=== PATIENT | male | born 1985 | race African-American/Black ===

== ENCOUNTER 2018-10-10 18:15 | Inpatient (IN) ==
[2018-10-10 18:52] LABS: BASO# 0.01 X1000 (0.0-0.2); BASO% 0.2 % (0.0-0.8); EOS# 0.05 X1000 (0.0-0.7); EOS% 0.9 % (0.0-10.0); HEMATOCRIT 31.5 % (42.0-52.0); HEMOGLOBIN 10.6 g/dL (14.0-18.0); LYMPH# 1.16 X1000 (1.2-3.4); LYMPH% 21.9 % (20.5-51.1); MCH 26.2 PG (27-31); MCHC 33.7 g/dL (33-37); MONO# 0.56 X1000 (0.11-0.59); MONO% 10.6 % (1.7-9.3); MPV 9.2 FL (7.4-10.4); NEUT# 3.52 X1000 (1.4-6.5); NEUT% 66.4 % (42.2-75.2); PLT 274 X1000 (130-400); RBC 4.04 XMIL (4.7-6.1); RDW 12.8 % (11.5-14.5)
[2018-10-10] MEDS ORDERED: ANTIVERT PO ONE (19:15)
[2018-10-10] MEDS ORDERED: NS 1,000 ML IV ONE ×2 (19:15→20:40)
[2018-10-10 19:17] LABS: AGAP 15; ALB/GLOB RATIO 1.1; ALBUMIN 3.9 g/dL (3.5-5.0); ALKALINE PHOSPHATASE 48 U/L (32-122); BUN 20 mg/dL (8-22); CALCIUM 8.8 mg/dL (8.8-10.2); CHLORIDE 107 mmol/L (98-107); COSMO 286; CREATININE 1.4 mg/dL (0.7-1.2); ESTIMATED GFR > 60; GLUCOSE 102 mg/dL (70-104); GOT 26 U/L (10-34); GPT 13 U/L (10-44); POTASSIUM 3.9 mmol/L (3.5-5.1); SODIUM 142 mmol/L (136-145); TCO2 20 mmol/L (25-35); TOTAL BILIRUBIN 0.87 mg/dL (0.20-1.00); TOTAL PROTEIN 7.5 g/dL (6.3-8.3)
--- NOTE | 2018-10-10 21:03 | Diag Imaging Result Doc PS360 ---
EXAM: CT HEAD W/O CONTRAST INDICATION: dizzy TECHNIQUE: This exam was performed using automated exposure control, adjustment of mA or kV according to patient size, and/or use of iterative reconstruction technique. COMPARISON: 06/13/2014 FINDINGS: There is no definite acute infarct given the limited sensitivity of CT versus MRI. There is no discrete intracranial mass, mass effect, or intracranial hemorrhage. The surrounding soft tissues and bony structures are essentially unremarkable. IMPRESSION: No evidence of acute intracranial pathology. Electronically signed by El Acevedo 10/10/2018 9:01 PM
[2018-10-10] MEDS ORDERED: TYLENOL PO PRN (21:05)
[2018-10-10] MEDS ORDERED: ZOFRAN IV PRN (21:05)
[2018-10-10] MEDS ORDERED: NORVASC PO ONE (21:52)
[2018-10-10] MEDS: LOVENOX SUBQ SCH (22:36)
[2018-10-10] MEDS: NS 1,000 ML IV SCH (22:36)
[2018-10-11] MEDS: NS 1,000 ML IV SCH ×2 (05:33→15:28)
[2018-10-11] MEDS: HUMALOG SUBQ SCH ×4 (06:23→21:00)
--- NOTE | 2018-10-11 06:43 | EKG Report ---
Test Performed on : 10/10/2018 6:26:35 PM Test Reason : DIZZINESS Blood Pressure : / mmHG Vent. Rate : 094 BPM Atrial Rate : 094 BPM P-R Int : 164 ms QRS Dur : 078 ms QT Int : 356 ms P-R-T Axes : 065 014 078 degrees QTc Int : 445 ms Normal sinus rhythm. Normal ECG When compared with ECG of 08-JUN-2017 18:36, Nonspecific T wave abnormality no longer evident in Inferior leads Unconfirmed Result
[2018-10-11 07:40] LABS: MPV 9.5 FL (7.4-10.4)
[2018-10-11 07:44] LABS: AGAP 8; BUN 16 mg/dL (8-22); CALCIUM 7.7 mg/dL (8.8-10.2); CHLORIDE 111 mmol/L (98-107); CK TOTAL 1146 U/L (24-204); COSMO 282; ESTIMATED GFR > 60; GLUCOSE 126 mg/dL (70-104); POTASSIUM 3.8 mmol/L (3.5-5.1); SODIUM 140 mmol/L (136-145); TCO2 21 mmol/L (25-35)
[2018-10-11 07:54] LABS: HEMOGLOBIN 9.6 g/dL (14.0-18.0); MCH 26.2 PG (27-31); MCHC 33.1 g/dL (33-37); PLT 232 X1000 (130-400); RBC 3.67 XMIL (4.7-6.1); RDW 12.9 % (11.5-14.5); WBC 4.55 X1000 (4.8-10.8)
[2018-10-11 07:55] LABS: BASO# 0.02 X1000 (0.0-0.2); BASO% 0.4 % (0.0-0.8); EOS# 0.17 X1000 (0.0-0.7); EOS% 3.7 % (0.0-10.0); MONO# 0.53 X1000 (0.11-0.59); MONO% 11.6 % (1.7-9.3); NEUT# 2.33 X1000 (1.4-6.5); NEUT% 51.3 % (42.2-75.2)
[2018-10-11 08:44] LABS: IRON SATURATION 25 %; TIBC 197 ug/dL; TOTAL IRON 50 ug/dL (53-167); UNBOUND IRON 147 ug/dL (112-346)
[2018-10-11 10:02] LABS: FERRITIN 165 ng/mL (30-400)
--- NOTE | 2018-10-11 15:11 | PROGRESS NOTE ---
DATE: 10/11/2018 SUBJECTIVE: This morning, Mr. Willis referred to be feeling a little better. He said he has not gotten up yet, but he does not feel as dizzy as before. OBJECTIVE: Current Vital Signs: Blood pressure is 131/83, pulse of 85, respirations are 18, temperature is 98.0 degrees, the patient is saturating 99% on room air. General Examination: Mr. Willis is a 33-year-old, gentleman. He is in bed. No distress. HEENT: Mucosa is pink and moist. Anicteric. Acyanotic. Neck: Supple. Chest: Good air entry bilaterally. No crepitations. No rhonchi. Cardiovascular: Regular rate and rhythm. No murmurs, no rubs, no gallops. GI: Abdomen is soft, nontender. Bowel sounds present. : Unremarkable. Extremities: No pedal edema. Distal pulses are present. CHEMISTRY ASSOCIATE: The patient is awake, alert, oriented. There is some mild peripheral sensation alteration in the lower extremities in a glove- stocking manner. Laboratory Data: WBC is 4.55, hemoglobin is 9.6, platelet count of 232,000. Chemistry is also reviewed and unremarkable. A CT scan of the head showed no evidence of intracranial pathology. EKG on admission did show a sinus rhythm. No acute ST-segment or T-wave abnormalities. ASSESSMENT: 1. Syncope on presentation with positive orthostatic vitals, consistent with orthostatic hypotension. The patient has been adequately fluid resuscitated. 2. Clinical volume depletion. Patient is on fluids. 3. Acute kidney injury secondary to #2, improved. 4. Hypertension. We will restart the patient back on his home medications. 5. Microcytic anemia with normal iron studies, most likely due to anemia of chronic disease. 6. Mild rhabdomyolysis. The patient is on intravenous fluids. 7. Diabetes mellitus. The patient is on an insulin regimen. 8. Peripheral diabetic neuropathy noted. PLAN: In general, I think Mr. Willis seems to be doing a little better. He does not feel anymore dizzy. We are going to continue with the IV fluids. We will repeat his orthostatic vitals for in the morning. Continue with the management of his other comorbidities. Hopefully, discharge him tomorrow. cc: Martin Moore MD
[2018-10-11] MEDS: LOVENOX SUBQ SCH (21:01)
--- NOTE | 2018-10-12 03:25 | HISTORY AND PHYSICAL ---
CHIEF COMPLAINT: Dizziness. HISTORY OF PRESENT ILLNESS: Mr. Willis is a 33-year-old male who comes into the emergency room with a complaint of weakness, dizziness, lightheaded, close to syncope. He was working outside prior to arrival. He has not been taking his hypertension or diabetes medications because he has not found a doctor since getting insurance. He did check his blood sugar and it was 145 prior to arrival. On arrival, laboratory data was obtained that showed he was in acute renal failure with mild rhabdomyolysis. He will be admitted for further evaluation and treatment. PAST MEDICAL HISTORY: Hypertension, diabetes mellitus type 2, hyperlipidemia, schizophrenia. PREVIOUS SURGICAL HISTORY: Denies. SOCIAL HISTORY: Daily smoker. Smokes around 3 cigarettes per day. I believe he has a history of methamphetamine use but denies taking any illicit drugs or using alcohol. FAMILY HISTORY: Positive for diabetes mellitus in several first-degree relatives. ALLERGIES: No known drug allergies. HOME MEDICATION: No home medication. REVIEW OF SYSTEMS: Fourteen-point review of systems conducted with the patient. Pertinent positives listed above in the HPI. All other systems reviewed and found to be negative. PHYSICAL EXAMINATION: VITAL SIGNS: Temperature 98.2, pulse 99, respirations 18, blood pressure 160/92. Orthostatics were obtained and he did tilt. GENERAL: A 33-year-old male answers all questions appropriately, alert and oriented times 3, in no acute distress. HEENT: Head is atraumatic, normocephalic. Pupils equal, round, reactive to light. Extraocular eye movement is intact. Sclerae are anicteric. Conjunctiva is pale. Oral mucosa is dry. NECK: Supple. No JVD. No thyromegaly. Trachea is midline. No cervical lymphadenopathy. CARDIAC: S1, S2 appreciated. Mildly tachycardic. No murmurs, gallops, rubs. LUNGS: Clear to auscultation. No rhonchi, wheezes, rales. Symmetric rise and fall with respirations. ABDOMEN: Soft, nondistended, nontender. Bowel sounds present all 4 quadrants, normoactive. No pulsatile mass. No organomegaly. EXTREMITIES: No clubbing, cyanosis or edema. Two-plus pedal pulses. GENITOURINARY: No bladder distention. Patient voids. Otherwise deferred. NEUROLOGICAL: Alert and oriented times 3. Cranial nerves 2-12 grossly intact. LABORATORY DATA: WBC 5.30. Hemoglobin 10.6. Hematocrit 31.5. Platelet count 274. Sodium 142. Potassium 3.9. Chloride 107. Carbon dioxide 20. BUN 20. Creatinine 1.4. Glucose 102. CK 1619. DIAGNOSTIC DATA: CT of the head: No acute intracranial process. ASSESSMENT AND PLAN: 1. Near syncope secondary to fluid volume depletion and orthostatic hypotension. Fluid resuscitation has been started in the emergency room. We will continue fluids. Recheck laboratory data tomorrow. 2. Fluid volume depletion. See above. 3. Acute kidney injury secondary to #2. Hopefully, this will improve with fluid hydration. 4. Hypertension. Patient has not had his home medications. We will restart once medications are reconciled and we find out what the patient was taking. 5. Microcytic anemia. Check iron indices. 6. Mild rhabdomyolysis. This is likely related to patient working outside in the heat. 7. Diabetes mellitus. We will place on sliding scale insulin with fingerstick blood sugars. Further recommendation per patient clinical course. Dictated by JUVENTINO Sauceda for Lito Morales MD cc: JUVENTINO Sauceda MD
[2018-10-12] MEDS: NS 1,000 ML IV SCH (03:40)
[2018-10-12] MEDS: HUMALOG SUBQ SCH ×2 (06:03→11:17)
[2018-10-12 07:17] LABS: HEMOGLOBIN 9.7 g/dL (14.0-18.0); MCH 26.1 PG (27-31); MCHC 33.4 g/dL (33-37); MCV 78.2 FL (81-99); MPV 9.2 FL (7.4-10.4); RBC 3.71 XMIL (4.7-6.1); RDW 12.6 % (11.5-14.5); WBC 3.85 X1000 (4.8-10.8)
[2018-10-12 07:33] LABS: AGAP 9; ALBUMIN 3.2 g/dL (3.5-5.0); ALKALINE PHOSPHATASE 42 U/L (32-122); BUN 12 mg/dL (8-22); CALCIUM 7.9 mg/dL (8.8-10.2); CHLORIDE 111 mmol/L (98-107); COSMO 287; CREATININE 0.9 mg/dL (0.7-1.2); ESTIMATED GFR > 60; GLUCOSE 131 mg/dL (70-104); GOT 16 U/L (10-34); GPT 9 U/L (10-44); POTASSIUM 3.8 mmol/L (3.5-5.1); SODIUM 143 mmol/L (136-145); TCO2 23 mmol/L (25-35); TOTAL PROTEIN 6.3 g/dL (6.3-8.3)
[2018-10-12 08:26] VITALS: BP 148/95
--- NOTE | 2018-10-13 05:37 | DISCHARGE SUMMARY ---
ADMISSION DATE: 10/10/2018 DISCHARGE DATE: 10/12/2018 DISPOSITION: Home. FOLLOW UP: Follow-up will be with patient's PCP. ADMISSION DIAGNOSES: 1. Near syncope. 2. Fluid volume depletion. 3. Acute kidney injury. 4. Microcytic anemia. 5. Mild rhabdomyolysis. DIAGNOSES AT TIME OF DISCHARGE: 1. Near-syncope secondary to orthostatic hypotension. 2. Clinical volume depletion with acute kidney injury. 3. Hypertension. 4. Microcytic anemia secondary to anemia of chronic disease. 5. Mild rhabdomyolysis. 6. Diabetes mellitus. 7. Peripheral diabetic neuropathy. DISCHARGE MEDICATIONS: 1. Insulin Humulin 70/30 20 units b.i.d. 2. Simvastatin 20 mg p.o. at bedtime. 3. Lisinopril 20 mg p.o. daily. PRESENTING COMPLAINT: Dizziness. HISTORY OF PRESENT COMPLAINT: Mr. Willis is a 33-year-old gentleman who is known to have hypertension, diabetes, dyslipidemia, and schizophrenia, came to the emergency department complaining of dizziness, and was found to be orthostatic positive. Patient was admitted to the medical floor for further medical management. HOSPITAL COURSE: Mr. Willis was admitted, and was adequately fluid resuscitated. Orthostatic vitals seems to have been positive initially. During the hospital course, Mr. Willis did improve and did not have any more symptoms upon orthostatism. He has been able to move around and use the restroom. He is tolerating his diabetic diet and has had bowel movements. We think Mr. Willis is now fully fluid resuscitated. His creatinine is normalized. We think he is stable for discharge. He has been restarted back on his home medications, and has been advised to be compliant with medications. Social Work has also given him a list of primary care physicians that he can follow up with since we understand he does not have any PCP. All the discharge instructions have been discussed with Mr. Willis, and he voiced understanding. TIME SPENT FOR DISCHARGE: 33 minutes. cc: Martin Moore MD
--- NOTE | 2018-10-14 05:08 | PROVIDER DOCUMENTATION ---
This chart was entered by Usha Acevedo Scribe, acting as scribe for Dwight Dixon MD. HPI-General Adult - General Chief Complaint: Dizziness Stated Complaint: DIZZY Time Seen by Provider: 10/10/18 19:08 Source: patient Allergies/Adverse Reactions: Patient Allergies Allergy/AdvReac Type Severity Reaction Status Date / Time No Known Allergies Allergy Verified 10/10/18 19:20 Home Medications: Home Medication List Medication Instructions Recorded Confirmed Last Taken Type Insulin Humulin 70/30 [Humulin 20 unit SUBQ BID 20 Days 04/12/18 10/10/18 10/10/18 07:00 Rx 70/30] insuln.pen Lisinopril 20 mg PO HS 10/10/18 10/10/18 10/09/18 21:00 History Simvastatin 20 mg PO HS 10/10/18 10/10/18 10/09/18 21:00 History - History of Present Illness -Gen Adult Nature of Presenting Problems: 33 yom c/o weakness, dizzy, lightheaded, close to syncope. pt sts sym started when working outside [facility]. pt has hx of htn and dm. pt checked sugar today and it was 145. pt has no pcp, sts just got insurance and hasn't found dr. pt on no htn or dm meds. Review of Systems - Adult - REVIEW OF SYSTEMS - ADULT Constitutional: reports: no symptoms reported. denies: chills, fever Eyes: reports: no symptoms reported Ears, Nose, Mouth & Throat: reports: no symptoms reported Cardiovascular: reports: no symptoms reported Respiratory: reports: no symptoms reported Gastrointestinal: reports: no symptoms reported Genitourinary: reports: no symptoms reported Musculoskeletal: reports: no symptoms reported Integumentary: reports: no symptoms reported Neurological: reports: see HPI, dizziness/vertigo, syncope (felt like close to syncope), other (weakness, lightheaded). denies: headache/migraines, loss of balance, numbness Psychiatric: reports: no symptoms reported Endocrine: reports: no symptoms reported Hematologic/Lymphatic: reports: no symptoms reported Allergic/Immunologic: reports: no symptoms reported All Other Systems: Reviewed and Negative Past History - Adult - PAST MEDICAL HISTORY-ADULT Review of Records: reports: Old Records Reviewed, Nursing Assessment Review, Medications Reviewed, Social history reviewed & non-contributory. Major Childhood Illnesses: reports: denies history Cardiovascular: reports: HTN, hyperlipidemia Respiratory: reports: denies history Gastrointestinal: reports: denies history Obstetrical/Gynecological: reports: denies history Genitourinary: reports: denies history Musculoskeletal: reports: denies history Neurological: reports: other (neuropathy) Psychiatric: reports: depression, psychiatric problems, schizophrenia Endocrine/Immune: reports: Diabetes Other Conditions: reports: denies history - PRIOR SURGERIES/PROCEDURES Surgical/Procedure History: reports: none - PRIOR HOSPITALIZATIONS Prior Hospitalizations: reports: for other non-related - IMMUNIZATION STATUS Childhood Immunizations: See Nurse Assessment Flu Vaccine: See Nurse Assessment - FAMILY HISTORY Family History: reviewed, not pertinent - SOCIAL HISTORY Smoking: cigarettes, less than 1 pack/day Provider spent 3-5 mins advising pt. on dangers of tobacco.: Discussed manners to quit use, and f/u contacts for add'l counseling. Substance Use: none/never Physical Exam-General - PHYSICAL EXAM-ADULT Initial Vital Signs Reviewed: Yes - CONSTITUTIONAL General Appearance: alert, mild distress - EYES Eyes: PERRL/EOMI, other (baseline conjugate gaze). negative: photophobia, sclera injected, subconjunctival hemorrhage - HEAD, EARS, NOSE, MOUTH & THROAT HENMT: normocephalic/atraumatic, moist mucous membranes, normal ENT inspection - NECK Neck: non-tender, full range of motion, supple, normal inspection - RESPIRATORY Respiratory: chest non-tender, lungs clear, normal breath sounds - CARDIOVASCULAR Cardiovascular: normal peripheral pulses, regular rate, rhythm - GASTROINTESTINAL (ABDOMEN) Abdominal Exam: normal bowel sounds, non tender, soft - MUSCULOSKELETAL Back Exam: normal inspection, no CVA tenderness, no vertebral tenderness Extremity: normal range of motion, non-tender, normal inspection Peripheral Pulses: radial (R): 2+, radial (L): 2+ - SKIN Integumentary: normal color, normal turgor, warm/dry - NEUROLOGIC Neurologic: key account executive II-XII nml as tested, grossly normal, no motor/sensory deficits. negative: aphasia, EOM palsy, facial droop - PSYCHIATRIC Psych/Mental Status: normal mood/affect, normal thought content, normal thought process, oriented x 3 Progress - PLAN OF CARE/RESULTS Progress/Plan/Lab Results: Vital Signs - 8 hr 10/10/18 18:26 Temperature 98.2 F Pulse Rate 98 H Respiratory Rate 18 Blood Pressure 147/89 O2 Sat by Pulse Oximetry 100 Laboratory Results - last 24 hr 10/10/18 10/10/18 10/10/18 18:29 18:31 18:31 WBC 5.30 RBC 4.04 L Hgb 10.6 L Hct 31.5 L MCV 78.0 L MCH 26.2 L MCHC 33.7 RDW Std Deviation 12.8 Plt Count 274 MPV 9.2 Immature Gran % (Auto) 0.0 Neut % (Auto) 66.4 Lymph % (Auto) 21.9 [place] % (Auto) 10.6 H Eos % (Auto) 0.9 Baso % (Auto) 0.2 Immature Gran # (Auto) 0.00 Neut # (Auto) 3.52 Lymph # (Auto) 1.16 L [place] # (Auto) 0.56 Eos # (Auto) 0.05 Baso # (Auto) 0.01 Sodium 142 Potassium 3.9 Chloride 107 Carbon Dioxide 20 L Anion Gap 15 BUN 20 Creatinine 1.4 H Estimated GFR/1.73 m2 > 60 BUN/Creatinine Ratio 14 Glucose 102 POC Glucose 106 H D Calculated Osmolality 286 Calcium 8.8 Total Bilirubin 0.87 AST 26 ALT 13 Alkaline Phosphatase 48 Total Protein 7.5 Albumin 3.9 Globulin 3.6 Albumin/Globulin Ratio 1.1 Orders Category Date Time Status ED: Orthostatic Vital Signs (E as directed Care 10/10/18 19:[address] HEAD W/O CONTRAST [CT] Stat Exams 10/10/18 19:15 Ordered CBC WITH DIFF [HEME] Stat Lab 10/10/18 18:31 Completed CK TOTAL [CHEM] Stat Lab 10/10/18 19:20 Ordered CMP [COMPREHENSIVE METABOLIC PANEL] [CHEM] Stat Lab 10/10/18 18:31 Completed 0.9% Sodium Chloride Inj [Ns] 1,000 ml Med 10/10/18 19:15 Active IV 999 mls/hr Meclizine [Antivert] Med 10/10/18 19:15 Discontinued 25 mg PO NOW ONE EKG [EKG] Stat Ther 10/10/18 18:27 Ordered Result Diagrams: 10/12/18 06:53 10/12/18 06:53 - EKG 1 Time of EKG reading by physician:: 18:26 EKG Read and Signed by:: Amy Huu Ho EKG Interpretation (*Must complete 3 of following elements*): Normal Rate: 94 Rhythm: NSR [place]: normal QRS: normal NC Interval: normal ST Wave: normal - CT/MRI 1 CT Study: Head (EXAM: CT HEAD W/O CONTRAST INDICATION: dizzy TECHNIQUE: This exam was performed using automated exposure control, adjustment of mA or kV according to patient size, and/or use of iterative reconstruction technique. COMPARISON: 06/13/2014 FINDINGS: There is no definite acute infarct given the limited sensitivity of CT versus MRI. There is no discrete intracranial mass, mass effect, or intracranial hemorrhage. The surrounding soft tissues and bony structures are essentially unremarkable. IMPRESSION: No evidence of acute intracranial pathology. Electronically signed by El Acevedo 10/10/2018 9:01 PM) Impression: Normal Departure - Departure Date of Disposition Decision: 10/10/18 Time of Disposition Decision: 21:00 DIAGNOSIS: Near syncope Disposition: ADMITTED INPATIENT 09 Certified Medical Emergency: Emergent Condition: Stable - Critical Care Note This patient required my direct & personal management of CC.: No Attestation - Physician/ ELIJAH Attestation Patient care was provided by Advanced Practice Provider:: No The physician spent face to face time with patient:: Yes Advanced Practice Provider documentation review:: Supervising physician onsite and consulted in the evaluation and care of this patient. The physician did have a face to face encounter with the patient. This chart was documented by the indicated scribe, (Usha Acevedo Scribe) and accurately reflects the services I performed and decisions made by me, Dwight Dixon MD, as attested by the provider's signature.
== END 2018-10-12 12:48 | disposition home or self-care (01) | DRG 683 ==
LOC: ED 18:15 → 3N 18:15 → SUATTDRO 21:40 → OBSVTOIN 21:40
PROVIDERS: ATTEND Internal Medicine
CPT/HCPCS: 70450; 80048; 80053; 82550; 82607; 82728; 82746; 82948; 83540; 83550; 84443; 85025; 85027; 93005; A9270; J1650; J1815; J7030; XXXXX